=== PATIENT | female | born 1955 | race African-American/Black ===

== ENCOUNTER 2016-10-03 14:49 | Emergency (ER) | payer OTHER ==
[2016-10-03] MEDS ORDERED: diphenhydrAMINE HCl 25 MG CAP ONE (15:14)
[2016-10-03] MEDS ORDERED: Famotidine 20 MG TAB ONE (15:14)
[2016-10-03] MEDS ORDERED: Dexamethasone 4 MG TAB ONE (15:14)
== END 2016-10-03 16:05 | disposition home or self-care (01) ==
LOC: MADERS 14:49
DX: T78.3XXA Angioneurotic edema, initial encounter (principal); T46.4X5A Adverse effect of angiotensin-converting-enzyme inhibitors, initial encounter; I10 Essential (primary) hypertension; Z79.899 Other long term (current) drug therapy
CPT/HCPCS: J8540

== ENCOUNTER 2016-12-17 19:15 | Emergency (ER) | payer OTHER ==
[2016-12-17] MEDS ORDERED: cefTRIAXone\\ROCEPHIN 1 GM VIAL ONE (20:25)
[2016-12-17] MEDS ORDERED: Lidocaine 1% 20 ML MDV ONE (20:27)
== END 2016-12-17 20:35 | disposition home or self-care (01) ==
LOC: MADERS 19:15
DX: J20.9 Acute bronchitis, unspecified (principal); H66.001 Acute suppurative otitis media without spontaneous rupture of ear drum, right ear; I10 Essential (primary) hypertension; Z79.899 Other long term (current) drug therapy
CPT/HCPCS: 99283; J0696; J2001

== ENCOUNTER 2017-12-21 06:42 | Emergency (ER) | payer OTHER ==
[2017-12-21] MEDS ORDERED: Ibuprofen 600 MG TAB ONE (07:47)
== END 2017-12-21 07:45 | disposition home or self-care (01) ==
LOC: MADERS 06:42
DX: M75.51 Bursitis of right shoulder (principal); I10 Essential (primary) hypertension; Z79.899 Other long term (current) drug therapy
CPT/HCPCS: 99283

== ENCOUNTER 2017-12-22 01:44 | Emergency (ER) | payer OTHER ==
[2017-12-22] MEDS ORDERED: Ketorolac Tromethamine 30 MG/ML VIAL ONE (04:00)
== END 2017-12-22 04:19 | disposition home or self-care (01) ==
LOC: MADERS 01:44
DX: M25.511 Pain in right shoulder (principal); I10 Essential (primary) hypertension; Z79.899 Other long term (current) drug therapy
CPT/HCPCS: 96372; J1885